=== PATIENT | female | born 2000 | race Hispanic/Latino ===

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

== ENCOUNTER 2021-06-07 10:06 | Emergency (ER) | payer MEDICAID ==
[~2021-06-07] VITALS: Ht 162.6 cm; Wt 78.0 kg
[2021-06-07 11:52] VITALS: BP 124/52
== END 2021-06-07 11:58 | disposition home or self-care (01) ==
LOC: EDH 10:06
DX: J06.9 Acute upper respiratory infection, unspecified (principal); Z20.822 Contact with and (suspected) exposure to COVID-19
CPT/HCPCS: 87635; 87804 ×2; 87880; 99283; C9803

== ENCOUNTER 2021-12-09 19:32 | Emergency (ER) | payer MEDICAID ==
[~2021-12-09] VITALS: Ht 162.6 cm; Wt 107.5 kg
[2021-12-09 21:38] VITALS: BP 118/65
[2021-12-09] MEDS ORDERED: D-ME1POW16 PO (21:40)
== END 2021-12-09 21:44 | disposition home or self-care (01) ==
LOC: EDH 19:32
DX: J06.9 Acute upper respiratory infection, unspecified (principal)
CPT/HCPCS: 87804

== ENCOUNTER 2022-01-29 21:55 | Emergency (ER) | payer MEDICAID ==
[~2022-01-29] VITALS: Ht 165.1 cm; Wt 83.5 kg
[~2022-01-29 21:55] MED LIST: D-ME1POW16 PO
[2022-01-29] MEDS ORDERED: TETANUS/DIPHTHERIA TOXOID [ADULT] 0.5 ML VIAL IM ONE (22:30)
[2022-01-29] MEDS ORDERED: AMOX875T2 PO (23:07)
[2022-01-29 23:28] VITALS: BP 135/76
== END 2022-01-29 23:29 | disposition home or self-care (01) ==
LOC: EDH 21:55
DX: S91.339A Puncture wound without foreign body, unspecified foot, initial encounter (principal); X58.XXXA Exposure to other specified factors, initial encounter; Y93.89 Activity, other specified; Y92.89 Other specified places as the place of occurrence of the external cause; Y99.8 Other external cause status
CPT/HCPCS: 73630; 90471; 90714

== ENCOUNTER 2022-06-25 21:21 | Emergency (ER) | payer MEDICAID ==
[~2022-06-25] VITALS: Ht 165.1 cm; Wt 112.9 kg
[~2022-06-25 21:21] MED LIST changes: +AMOX875T2 PO
[2022-06-25 22:05] VITALS: BP 125/80
[2022-06-25 23:00] LABS: HCG,QUALITATIVE URINE NEGATIVE (NEGATIVE)
[2022-06-25 23:04] LABS: APPEARANCE,URINE CLOUDY (CLEAR); BILIRUBIN,URINE NEGATIVE (NEGATIVE); COLOR,URINE YELLOW (YELLOW); GLUCOSE, URINE (UA) NEGATIVE (NEGATIVE); KETONES,URINE NEGATIVE (NEGATIVE); LEUKOCYTE ESTERASE ,URINE 500 Leu/uL (NEGATIVE); NITRATE,URINE NEGATIVE (NEGATIVE); OCCULT BLOOD,URINE LARGE (NEGATIVE); PH,URINE 5.5 (5.0-8.0); PROTEIN,URINE 20 mg/dL (NEGATIVE); UROBILINOGEN,URINE 0.2 mg/dL (0.2-1.0)
[2022-06-25 23:10] LABS: BACTERIA,URINE RARE /HPF (None Seen); MUCUS,URINE RARE LPF (None Seen); RBC,URINE >100 /HPF (0-1); SQUAMOUS EPITHELIAL CELL,UR RARE /HPF (0-2); WBC,URINE 51-100 /HPF (0-1)
[2022-06-25] MEDS ORDERED: IBUPROFEN 600 MG TABLET PO ONE (23:30)
[2022-06-25] MEDS ORDERED: CEPH500B PO (23:59)
[2022-06-25] MEDS ORDERED: CYCL10TA16 PO (23:59)
== END 2022-06-26 00:08 | disposition home or self-care (01) ==
LOC: EDH 21:21
DX: S29.9XXA Unspecified injury of thorax, initial encounter (principal); N39.0 Urinary tract infection, site not specified; E66.01 Morbid (severe) obesity due to excess calories; Z79.1 Long term (current) use of non-steroidal anti-inflammatories (NSAID); Z68.41 Body mass index [BMI] 40.0-44.9, adult; W01.10XA Fall on same level from slipping, tripping and stumbling with subsequent striking against unspecified object, initial encounter; Y93.89 Activity, other specified; Y92.89 Other specified places as the place of occurrence of the external cause; Y99.8 Other external cause status
CPT/HCPCS: 72072; 81001; 81025; 87088

== ENCOUNTER 2022-07-25 13:36 | Emergency (ER) | payer MEDICAID ==
[~2022-07-25] VITALS: Ht 165.1 cm; Wt 93.9 kg
[~2022-07-25 13:36] MED LIST changes: +CEPH500B PO; +CYCL10TA16 PO
[2022-07-25 14:03] VITALS: BP 125/56
[2022-07-25] MEDS ORDERED: IBUP-2070 PO (16:14)
[2022-07-25] MEDS ORDERED: PENICILLIN G BENZATHINE LA 1.2 MILUNITS/2 ML SYG IM ONE (16:30)
== END 2022-07-25 17:02 | disposition home or self-care (01) ==
LOC: EDH 13:36
DX: J02.0 Streptococcal pharyngitis (principal); E66.01 Morbid (severe) obesity due to excess calories; Z68.34 Body mass index [BMI] 34.0-34.9, adult; Z20.822 Contact with and (suspected) exposure to COVID-19
CPT/HCPCS: 99283; 87635; 87880; 87804 ×2; 96372; J0561; C9803

== ENCOUNTER 2023-02-17 20:19 | Emergency (ER) | payer MEDICAID ==
[~2023-02-17 20:19] MED LIST changes: +IBUP-2070 PO
== END 2023-02-17 22:48 | disposition left against medical advice (07) ==
LOC: EDH 20:19
DX: R68.89 Other general symptoms and signs (principal); Z53.21 Procedure and treatment not carried out due to patient leaving prior to being seen by health care provider

== ENCOUNTER 2023-08-19 08:06 | Emergency (ER) | payer MEDICAID ==
[~2023-08-19] VITALS: Ht 165.1 cm; Wt 94.3 kg
[2023-08-19 08:08] VITALS: BP 109/66; PULSE 55; RESP 18; O2SAT 100
[2023-08-19 08:30] LABS: ADD UA MICROSCOPIC YES; APPEARANCE,URINE CLOUDY (CLEAR); BILIRUBIN,URINE NEGATIVE (NEGATIVE); COLOR,URINE LIGHT-ORANGE (YELLOW); GLUCOSE, URINE (UA) NEGATIVE (NEGATIVE); KETONES,URINE NEGATIVE (NEGATIVE); LEUKOCYTE ESTERASE ,URINE 75 Leu/uL (NEGATIVE); NITRATE,URINE NEGATIVE (NEGATIVE); OCCULT BLOOD,URINE LARGE (NEGATIVE); PH,URINE 5.5 (5.0-8.0); PROTEIN,URINE 50 mg/dL (NEGATIVE)
[2023-08-19 08:31] LABS: HCG,QUALITATIVE URINE NEGATIVE (NEGATIVE)
[2023-08-19 08:32] LABS: BASOPHILS # (AUTO) 0.02 K/uL (0.00-0.20); BASOPHILS % (AUTO) 0.2 % (0.0-5.0); EOSINOPHILS # (AUTO) 0.13 K/uL (0.00-0.70); EOSINOPHILS % (AUTO) 1.4 % (0.0-8.0); HEMATOCRIT 32.5 % (36-48); IMMATURE GRANULOCYTE ABSOLUTE 0.03 K/uL (0-1); LYMPHOCYTES # (AUTO) 2.7 K/uL (1.0-4.8); MEAN CORPUSCULAR HEMOGLOBIN 22.1 pg (27.0-33.0); MEAN CORPUSCULAR HGB CONC 29.8 g/dL (32.0-36.0); MEAN CORPUSCULAR VOLUME 74.2 fL (80-100); MONOCYTES # (AUTO) 0.8 K/uL (0.1-1.0); MONOCYTES % (AUTO) 8.8 % (3.0-13.0); NEUTROPHILS # (AUTO) 5.3 K/uL (1.8-7.7); NEUTROPHILS % (AUTO) 59.3 % (40.0-77.0); PLATELET COUNT (AUTO) 315 K/uL (130-400); RED BLOOD CELL COUNT(AUTO) 4.38 MIL/uL (4.00-5.50); RED CELL DISTRIBUTION WIDTH 18.9 % (11.0-15.5)
[2023-08-19 08:42] LABS: BACTERIA,URINE FEW /HPF (None Seen); MUCUS,URINE RARE LPF (None Seen); RBC,URINE TNTC /HPF (0-1); SQUAMOUS EPITHELIAL CELL,UR FEW /HPF (0-2); WBC,URINE 26-50 /HPF (0-1)
[2023-08-19 08:43] LABS: CREATININE 0.7 mg/dL (0.5-1.0); POTASSIUM 3.7 mmol/L (3.5-5.1)
[2023-08-19 08:47] LABS: ALBUMIN 3.7 g/dL (3.5-5.0); BILIRUBIN,TOTAL 0.3 mg/dL (0.2-1.0); TOTAL PROTEIN, SERUM 7.9 g/dL (6.0-8.3)
[2023-08-19] MEDS: CEFTRIAXONE 1G VIAL IM ONE (10:07)
[2023-08-19] MEDS ORDERED: MACR100 PO (10:26)
== END 2023-08-19 10:29 | disposition home or self-care (01) ==
LOC: EDH 08:06
DX: N39.0 Urinary tract infection, site not specified (principal)
CPT/HCPCS: 99283; 80053; 83690; 85025; 87088; 81001; 81025; 36415; 96372; J0696